=== PATIENT | male | born 1980 | race Caucasian/White ===

== ENCOUNTER 2018-05-08 07:26 | Day surgery (SDC) | payer BC ==
[~2018-05-08 07:26] MED LIST: CEFAZOLIN 1 GM INJ; DESFLURANE 15 MIN; DEXAMETHASONE 4 MG/ML 5 ML INJ; SUCCINYLCHOLINE CHLORIDE 100 MG/5 ML SYG IV
[2018-05-08 08:22] LABS: ADD MAN DIFF? NO
[2018-05-08 08:24] LABS: WHITE BLOOD COUNT 7.4 10^3/ul (4.8-10.8)
[2018-05-08 08:24] LABS: BASOPHIL # 0.1 10^3/ul (0.0-0.1); BASOPHILS % 0.7 % (0.0-2.0); EOSINOPHILS # 0.2 10^3/ul (0.0-0.5); HEMATOCRIT 41.8 % (42.0-52.0); HEMOGLOBIN 14.9 g/dl (14.0-18.0); LYMPHOCYTES % 27.2 % (15.0-51.0); MEAN CORPUSCULAR HEMOGLOBIN 30.8 pg (29.0-33.0); MEAN CORPUSCULAR HGB CONC 35.6 g/dl (32.0-37.0); MEAN CORPUSCULAR VOLUME 86.4 fl (82.0-101.0); MEAN PLATELET VOLUME 11.5 fl (7.4-10.4); MONOCYTE # 0.6 10^3/ul (0.3-0.9); MONOCYTES % 7.9 % (0.0-11.0); NEUTROPHIL # 4.6 10^3/ul (1.6-7.5); NEUTROPHILS % 61.9 % (39.0-77.0); PLATELET COUNT 260 10^3/UL (140-415); RED BLOOD COUNT 4.84 10^6/ul (4.70-6.10); RED CELL DISTRIBUTION WIDTH 12.1 % (11.5-14.5)
[2018-05-08 08:46] LABS: INR 0.95; PROTIME 12.8 Sec (11.9-14.9)
[2018-05-08 08:47] LABS: ALANINE AMINOTRANSFERASE 45 IU/L (13-69); ALBUMIN 4.5 g/dl (3.3-4.9); ALKALINE PHOSPHATASE 50 IU/L (42-121); ANION GAP 9 (5-13); ASPARTATE AMINO TRANSFERASE 39 IU/L (15-46); BILIRUBIN,INDIRECT 0.3 mg/dl (0-1.1); BILIRUBIN,TOTAL 0.3 mg/dl (0.2-1.3); CALCIUM 9.2 mg/dl (8.4-10.2); CARBON DIOXIDE 24 mmol/L (21-31); CHLORIDE 109 mmol/L (97-110); CREATININE 1.14 mg/dl (0.61-1.24); Estimated GFR > 60 mL/min (>60); GLUCOSE 95 mg/dl (70-220); PARTIAL THROMBOPLASTIN TIME 29.7 Sec (23.0-35.0); POTASSIUM 4.2 mmol/L (3.5-5.1); SODIUM 142 mmol/L (135-144); TOTAL PROTEIN 7.7 g/dl (6.1-8.1)
[2018-05-08 08:58] LABS: BLOOD UREA NITROGEN 23 mg/dl (7-20)
[2018-05-08] MEDS ORDERED: ROCURONIUM 50 MG INJ (09:56)
[2018-05-08] MEDS ORDERED: GLYCOPYRROLATE 0.4 MG INJ (09:56)
[2018-05-08] MEDS ORDERED: MIDAZOLAM 1 MG/ML 2 ML INJ (09:56)
[2018-05-08] MEDS ORDERED: CEFAZOLIN 1 GM INJ (09:56)
[2018-05-08] MEDS ORDERED: NEOSTIGMINE 3 MG/3 ML SYRINGE (09:56)
[2018-05-08] MEDS ORDERED: ONDANSETRON 4 MG INJ (09:56)
[2018-05-08] MEDS ORDERED: FENTAnyl 50 MCG/ML VIAL ×2 (09:56→11:58)
[2018-05-08] MEDS ORDERED: PROPOFOL 20 ML (09:56)
[2018-05-08] MEDS ORDERED: ROPIVACAINE 0.5 % 30 ML VIAL (09:57)
[2018-05-08] MEDS ORDERED: SOD CHLORIDE 0.9% 1,000 ML IV (10:00)
[2018-05-08] MEDS ORDERED: IPRATROPIUM (NEB) 0.5 MG/2.5 ML AMP HHN (11:00)
[2018-05-08] MEDS ORDERED: DIPHENHYDRAMINE 50 MG INJ IV (11:00)
[2018-05-08] MEDS ORDERED: ALBUTEROL 0.083% (NEB) 2.5 MG/3 ML AMP HHN (11:00)
[2018-05-08] MEDS ORDERED: MIDAZOLAM 1 MG/ML 2 ML INJ IV (11:00)
[2018-05-08] MEDS ORDERED: TRIMETHOBENZAMIDE 100 MG/ML VIAL IM (11:00)
[2018-05-08] MEDS ORDERED: OXYCODONE/ACETAMINOPHEN (5/325) TAB PO (11:00)
[2018-05-08] MEDS ORDERED: FENTAnyl 50 MCG/ML VIAL IV ×3 (11:00)
[2018-05-08] MEDS ORDERED: HYDROmorphONE 1 MG/5 ML IV SYRINGE IV ×2 (11:00)
[2018-05-08] MEDS ORDERED: EPHEDrine SULFATE 50 MG/5 ML SYG IV (11:00)
[2018-05-08] MEDS ORDERED: hydrALAzine 20 MG INJ IV (11:00)
[2018-05-08] MEDS: CEFAZOLIN 2 GM/50 ML (PMX) 50 ML IVPB (11:05)
[2018-05-08] MEDS ORDERED: hydrALAzine 20 MG INJ (11:31)
[2018-05-08] MEDS ORDERED: SUGAMMADEX SODIUM 200 MG/2 ML VIAL IV (11:50)
[2018-05-08] MEDS ORDERED: KETOROLAC 30 MG INJ (11:57)
[2018-05-08] MEDS: ONDANSETRON 4 MG INJ IV (12:08)
[2018-05-08] MEDS: LABETALOL HCL 20MG INJ IV ×2 (12:08→12:22)
[2018-05-08] MEDS: MEPERIDINE 25 MG INJ IV (12:17)
[2018-05-08] MEDS: HYDROmorphONE 1 MG/5 ML IV SYRINGE IV ×2 (12:18→12:25)
[2018-05-08] MEDS: HYDROCODONE/APAP (5/325) TAB PO (12:47)
[2018-05-08] MEDS: OXYCODONE/ACETAMINOPHEN (5/325) TAB PO (13:25)
== END 2018-05-08 14:00 | disposition home or self-care (01) ==
LOC: SDS 07:26
DX: K80.20 Calculus of gallbladder without cholecystitis without obstruction (principal)
CPT/HCPCS: 47562; 80053; 85025; 85610; 85730; 88304